=== PATIENT | female | born 1960 | race Caucasian/White ===

== ENCOUNTER 2016-03-19 14:06 | Day surgery (SDC) | payer OTHER ==
[~2016-03-19] VITALS: Ht 162.6 cm; Wt 75.0 kg
[~2016-03-19 14:06] MED LIST: BUPR300T51 PO; Lactated Ringer's 1,000 ML IV ONE; OMEP40CA36 PO; [UNRECOGNIZED DRUG - CODE] PO
[2016-03-19] MEDS ORDERED: Propofol 10,000 mCg/mL 20 mL Inj ONE (14:07)
[2016-03-19] MEDS ORDERED: fentaNYL-PF 50 mCg/mL 2 mL Inj ONE (14:07)
[2016-03-19 14:57] VITALS: BP 125/90; PULSE 80; RESP 16; O2SAT 97
[2016-03-19] MEDS ORDERED: Lactated Ringer's 1,000 ML IV SCH (15:43)
[2016-03-19] MEDS ORDERED: MetoCLOpramide 5 mg/mL 2 mL Inj IVPUSH PRN (15:45)
[2016-03-19] MEDS ORDERED: Ondansetron 2 mg/mL 2 mL Inj IVPUSH PRN (15:45)
[2016-03-19] MEDS ORDERED: Atropine 0.4 mg/mL Inj IVPUSH PRN (15:45)
[2016-03-19 16:32] VITALS: BP 125/93; PULSE 98; RESP 14; O2SAT 93
--- NOTE | 2016-03-19 16:35 | PCM.ANEP2 ---
Post Anesthesia Evaluation ASA/CMS Post Anesthesia VS in Patient's Normal Range?: Yes Resp Stable; Airway Patent?: Yes CV Function & Hydration Stable: Yes Mental Status Recovered?: Yes Pain control Satisfactory?: Yes N/V Control Satisfactory?: Yes Dawson Billings MD Mar 19, 2016 16:35
--- NOTE | 2016-03-19 16:35 | PCM.HPANE ---
Patient Data Surgeon Admitting Provider: Attending Provider:Gio Ren MD Primary Care Physician:Theodore Hills MD Other Provider:[facility] Reason for Visit Weight Loss Ht/WT & BMI Height (Feet): 5 Height (Inches): 4 Weight (Kilograms): 75.0 Body Mass Index 28.00 Allergies Coded Allergies: No Known Drug Allergies (Verified Allergy, Unknown, 01/29/14) Past Anesthesia History Anesthesia History: Positive for:: Abnormal Airway, Difficult Intubation ( states prior anesthesiologist informed her of difficulty ), Denies:: Anesthesia Reactions, Fam Anesthesia Reaction, Fam Malignant Hypertherm, Malignant Hyperthermia Diabetes History Hx Diabetes?: No MRSA MRSA: No Medications Hypertension Medication: No Home Meds Incl Beta Stanley: No Reported Medications Bupropion ER (Wellbutrin XL)300 Mg Tab.er.82c950 Mg PO DAILY #30 TABLET Ref 0 01/26/14 Omeprazole 40 Mg Capsule.dr40 Mg PO BID 30 Days Ref 0 01/26/14 Griseofulvin Ultramicrosize 250 Mg Pxfknw332 Mg PO Q12 01/26/14 History HEENT History: Positive for:: Abnormal Airway Difficult Intubation Denies:: Dysphagia Hearing Problem Hx of Heart Problems?: No Hx of Respiratory Problem?: No Hx Neurologic Problems?: No Neurological History: Denies:: CVA Hx of GI Problems?: Yes Gastrointestinal History: Positive for:: Gastroesphageal Reflux Denies:: Cirrhosis Diverticulitis Hiatal Hernia Rectal Bleeding Female Hx: Denies:: Currently (hysterectomy) Musculoskeletal History: Denies:: Joint Replacement Psycho Social History: Denies:: Anxiety Hx Depression Hx Surgeries?: Yes (hysterectomy, lasix, arm) Hx Any Other Health Problems?: Yes Hx Diabetes: No Hx Alcohol Use: Yes (occ) Smoking Status: Never Smoker Stop/Bang Treated for Sleep Apnea?: No Do You Have a CPAP Machine?: No S-Snoring: Do You Snore Loudly: No T-Tired: feel tired, fatigued: No O-Obsered: Observed not breath: No P-Blood Pressure: treated: No A- Age over 50: Yes N- Neck Large Circumference: No G- Gender Male: No WENDY Risk Assessment: Low Risk, <3 Yes Risk Assessment Category Category 1A: Patient has history of documented sleep apnea, and HAS NOT received any narcotic, sedative or anesthesia administration during this stay. Category 1B: Patient has history of documented sleep apnea, and HAS received any narcotic , sedative or anesthesia administration during this stay Category 2: Patient has SUSPECTED Obstructive Sleep Apnea, and HAS received any narcotic , sedative or anesthesia administration during this stay. Category 3: Patient has SUSPECTED Obstructive Sleep Apnea and HAS NOT received narcotic, sedative or anesthesia administration during this stay. Category 4: Outpatient in Procedural Areas with known sleep apnea or who screen positive for High Risk via the STOP/BANG questionnaire. Exam Exam Vital Signs Vital Signs Date Time Temp Pulse Resp B/P Pulse Ox O2 Delivery O2 Flow Rate FiO2 03/19/16 14:57 80 16 125/90 97 Room Air General Appearance: Alert, Oriented X3, Cooperative, No Acute Distress HEENT/AIRWAY: MP 2 Lungs: Clear to Auscultation, Normal Air Movement Heart: Exam Unremarkable, Regular Rate/Rhythm, No Murmurs/Rubs/Gallops Meds/Labs/Diagnostics Admission Meds Current Medications Lactated Ringer's (Lr) 1,000 ml @ 10 mls/hr Q24H ONCE IV Last administered on 03/19/16 14:50; Start 03/19/16 at 06:00; Stop 03/20/16 at 05:59 Lidocaine HCl (Xylocaine Viscous 2% Soln 15mL) 15 ml ONCE ONCE PO Last administered on 03/19/16 15:01; Start 03/19/16 at 06:00; Stop 03/19/16 at 06:01 ; Status DC Plan Impression Patient chart reviewed, patient interviewed and anesthestic plan with risks, benefits, and alternatives discussed, and informed consent obtained. ASA Physical Status: ASA2 Mod Systemic Disease Anesthetic Plan: GA, MAC Bene/Risks/Altern/Consents: Yes HP Complete Prior to Induction: Yes Dawson Billings MD Mar 19, 2016 15:46
[2016-03-19 16:39] VITALS: BP 131/92; PULSE 87; RESP 14; O2SAT 97
--- NOTE | 2016-03-20 00:45 | ENDO ---
[address] [address] ENDOSCOPY PROCEDURE PATIENT: RICHAR MASON : 1960 MR#: [id number] ADMIT: 03/19/2016 JOB ID: [id number] DATE OF PROCEDURE: 03/19/2016 PRIMARY PROVIDER: Theodore Hills MD. PROCEDURE: Esophagogastroduodenoscopy with biopsies. INDICATIONS: A 55-year-old female with a history of weight loss, early satiety, nausea, bloating, abdominal pain of uncertain etiology. The patient denies that this could be related to obstipation. Repeat upper endoscopy is pursued. EQUIPMENT: 1. GIF-H180J. 2. GIF-160. SEDATION: Monitored anesthesia as provided by Dr. Dawson Billings. COMPLICATIONS: None identified. PROCEDURE INFORMATION: After the risks and benefits were explained, written and verbal informed consent was obtained. The patient was brought into the endoscopy suite and placed into the left lateral decubitus position. Sedation was achieved as above. The GIF-H180J was introduced into the mouth, and once again the patient was intolerant of this endoscope in her posterior oropharynx, very similar to the way she responded at last EGD. We swapped this out for the GIF-160 and applied further sedation. With this, we were able to advance through the upper esophageal sphincter down through the esophagus, stomach and onto the second portion of the duodenum. The scope was slowly withdrawn to carefully examine the mucosa for any defects or lesions. Retroflexed views were accomplished in the stomach. The stomach was decompressed. The scope was removed from the patient who tolerated the procedure well. FINDINGS: 1. Duodenum: Mucosa appeared visually normal from the bulb through to the second portion. Random biopsies were taken for exclusion of sprue considering the patient's reported symptoms. 2. Stomach: No mass lesions. No outlet obstruction. No ulcers. Normal appearing pylorus. Mild diffuse gastropathy was seen throughout. Retroflexed views of the LES disclosed a very subtle sliding hiatal hernia. There was a small gastric polyp in the mid body that was removed and submitted for histopathology/exclusion of H. pylori. 3. Esophagus: The squamocolumnar junction correlated with the top of the gastric folds. The GEJ was at approximately 35 cm from the incisors. No acute or erosive changes. No strictures. No mass lesions throughout. ENDOSCOPIC DIAGNOSES: 1. Subtle sliding hiatal hernia. 2. Gastropathy. 3. Small gastric polyp. RECOMMENDATIONS: 1. Await histopathology. 2. Continue baseline anti-reflux therapy. 3. No findings were made today to account for the patient's clinical symptoms. Should there be nothing histologic to explain her complaints, then I would recommend further imaging with a HIDA scan in the event that this could be related to gallbladder dysfunction (we will order the HIDA scan today).
--- NOTE | 2016-03-21 11:29 | PATH ---
SURGICAL PATHOLOGY Attending Physician:Aye Weston CASE STATUS: Signed Out PATIENT NAME: RICHAR MASON PID: [id number] : 1960 DATE COLLECTED:03/19/2016 00:00 SPECIMEN: 1: Stomach, Polyp, Biopsy 2: Duodenum, Biopsy CLINICAL HISTORY: WEIGHT LOSS 1). GASTRIC POLYP BIOPSY 2). DUODENUM BIOPSY FINAL DIAGNOSIS: 1. Gastric Polyp Biopsy: Benign fundic gland polyp, negative for atypia. 2. Duodenum Biopsy: Changes consistent with chronic duodenitis with areas of foveolar metaplasia. Negative for evidence of celiac disease. Negative for dysplasia and malignancy. ICD10 K31.7 GROSS DESCRIPTION: The specimen is received in two formalin filled containers labeled with the patient's name. 1). The specimen is sublabeled "gastric polyp" and consists of a 0.2 x 0.2 x 0.2 CM portion of tissue which is entirely submitted in cassette 1A. 2). The specimen is sublabeled "duodenum" and consists of 2 portions of tissue which aggregate to 0.4 x 0.3 x 0.2 CM. The specimen is entirely submitted in cassette 2A. 03/20/2016 [facility] ICD-9 CODES: CPT CODES: 1: 10723, 17409 2: 41319 PROCEDURE/ADDENDA: Immunohistochemistry SPI Interpretation {Not Entered} Results-Comments Immunohistochemistry Results: 1.GASTRIC POLYP BIOPSY: NEGATIVE FOR HELICOBACTER PYLORI BY IMMUNOHISTOCHEMISTRY. This test was developed and its performance characteristics determined by [facility]. It has not been cleared or approved by the U. S. Food and Drug Administration. The FDA has determined that such clearance or approval is not necessary. This test is used for clinical purposes. It should not be regarded as investigational or for research. Electronically Signed Out By Gio Rodrigez MD Electronically Signed Out Gio Rodrigez MD [facility] [place] [address] Technical component performed at [facility], [address], [place], [address]
== END 2016-03-19 23:59 | disposition home or self-care (01) ==
LOC: END 14:06
PROVIDERS: ATTEND Internal Medicine Gastroenterology
DX: K29.80 Duodenitis without bleeding (principal); K44.9 Diaphragmatic hernia without obstruction or gangrene; K31.7 Polyp of stomach and duodenum
CPT/HCPCS: 43239; J2405; J3010; J7120

== ENCOUNTER 2016-03-28 12:59 | Day surgery (SDC) | payer OTHER ==
[~2016-03-28] VITALS: Ht 162.6 cm; Wt 64.8 kg
[2016-03-28] VITALS (8 sets, daily range): BP systolic 120–145; BP diastolic 83–97; PULSE 58–80; RESP 13–19; O2SAT 92–97
[~2016-03-28 12:59] MED LIST changes: -Lactated Ringer's 1,000 ML IV ONE
[2016-03-28] MEDS ORDERED: Ondansetron 2 mg/mL 2 mL Inj ONE (13:00)
[2016-03-28] MEDS ORDERED: fentaNYL-PF 50 mCg/mL 2 mL Inj ONE (13:00)
[2016-03-28] MEDS ORDERED: Rocuronium 10 mg/mL 5 mL Inj ONE (13:00)
[2016-03-28] MEDS ORDERED: Neostigmine 1 mg/mL 5 mL Inj ONE (13:00)
[2016-03-28] MEDS ORDERED: Glycopyrrolate 0.2 mg/mL 5 mL Inj ONE (13:00)
[2016-03-28] MEDS ORDERED: Dexamethasone 4 mg/mL Inj ONE (13:00)
[2016-03-28] MEDS ORDERED: Propofol 10,000 mCg/mL 20 mL Inj ONE (13:00)
[2016-03-28] MEDS ORDERED: Lactated Ringer's 1,000 ML IV ONE ×2 (13:17→13:50)
[2016-03-28] MEDS ORDERED: ONDA-53 PO (13:32)
[2016-03-28] MEDS ORDERED: Ondansetron 2 mg/mL 2 mL Inj IVPUSH ONE (14:05)
--- NOTE | 2016-03-28 15:19 | PCM.HPANE ---
Patient Data Surgeon Admitting Provider: Attending Provider:Antonio Salazar MD Primary Care Physician:Theodore Hills MD Other Provider:[facility] [facility] Reason for Visit cholelithiasis Ht/WT & BMI Height (Feet): 5 Height (Inches): 4 Weight (Kilograms): 64.8 Body Mass Index 24.00 Allergies Coded Allergies: No Known Drug Allergies (Verified Allergy, Unknown, 03/28/16) Past Anesthesia History Anesthesia History: Positive for:: Abnormal Airway, Difficult Intubation, Denies:: Anesthesia Reactions, Fam Anesthesia Reaction, Fam Malignant Hypertherm, Malignant Hyperthermia Diabetes History Hx Diabetes?: No MRSA MRSA: No Medications Home Meds Incl Beta Stanley: No Reported Medications Ondansetron 4 Mg Tablet4 Mg PO PRN For Nausea 03/28/16 Bupropion ER (Wellbutrin XL)300 Mg Tab.er.30s129 Mg PO DAILY #30 TABLET Ref 0 01/26/14 Omeprazole 40 Mg Capsule.dr40 Mg PO BID 30 Days Ref 0 01/26/14 Discontinued Reported Medications Griseofulvin Ultramicrosize 250 Mg Jtpuvm364 Mg PO Q12 01/26/14 History HEENT History: Positive for:: Abnormal Airway Difficult Intubation Denies:: Dysphagia Hearing Problem Hx of Heart Problems?: No Hx of Respiratory Problem?: No Hx Neurologic Problems?: No Neurological History: Denies:: CVA Hx of GI Problems?: Yes Gastrointestinal History: Positive for:: Gastroesphageal Reflux Denies:: Cirrhosis Diverticulitis Hiatal Hernia Rectal Bleeding Female Hx: Denies:: Currently (hysterectomy) Musculoskeletal History: Denies:: Joint Replacement Psycho Social History: Denies:: Anxiety Hx Depression Hx Surgeries?: Yes (hysterectomy, lasix, arm) Hx Any Other Health Problems?: Yes Hx Diabetes: No Hx Alcohol Use: Yes (occ) Smoking Status: Never Smoker Stop/Bang Treated for Sleep Apnea?: No Do You Have a CPAP Machine?: No S-Snoring: Do You Snore Loudly: No T-Tired: feel tired, fatigued: No O-Obsered: Observed not breath: No P-Blood Pressure: treated: No B- Body Mass Index > 35 kg/m2: No A- Age over 50: Yes N- Neck Large Circumference: No G- Gender Male: No WENDY Risk Assessment: Low Risk, <3 Yes Risk Assessment Category Category 1A: Patient has history of documented sleep apnea, and HAS NOT received any narcotic, sedative or anesthesia administration during this stay. Category 1B: Patient has history of documented sleep apnea, and HAS received any narcotic , sedative or anesthesia administration during this stay Category 2: Patient has SUSPECTED Obstructive Sleep Apnea, and HAS received any narcotic , sedative or anesthesia administration during this stay. Category 3: Patient has SUSPECTED Obstructive Sleep Apnea and HAS NOT received narcotic, sedative or anesthesia administration during this stay. Category 4: Outpatient in Procedural Areas with known sleep apnea or who screen positive for High Risk via the STOP/BANG questionnaire. Exam Exam Vital Signs Vital Signs Date Time Temp Pulse Resp B/P Pulse Ox O2 Delivery O2 Flow Rate FiO2 03/28/16 13:23 36.7 80 19 120/85 96 Room Air General Appearance: Alert, Oriented X3, Cooperative, No Acute Distress HEENT/AIRWAY: MP 2 Lungs: Clear to Auscultation, Normal Air Movement Heart: Exam Unremarkable, Regular Rate/Rhythm, No Murmurs/Rubs/Gallops Additional Information Short chin and history of difficult intubation. Meds/Labs/Diagnostics Admission Meds Current Medications Lactated Ringer's (Lr) 1,000 ml @ ud STK-MED ONCE IV Last administered on 13:17; Start 03/28/16 at 13:17; Stop 03/28/16 at 13:18; Status DC Ondansetron HCl (Zofran Inj) 4 mg ONCE ONCE IVPUSH Last administered on 14:15; Start 03/28/16 at 14:05; Stop 03/28/16 at 14:06; Status DC Plan Impression Patient chart reviewed, patient interviewed and anesthestic plan with risks, benefits, and alternatives discussed, and informed consent obtained. NPO Status: MIDNIGHT ASA Physical Status: ASA2 Mod Systemic Disease Anesthetic Plan: GA Bene/Risks/Altern/Consents: Yes HP Complete Prior to Induction: Yes Rei Mart MD Mar 28, 2016 15:19
[2016-03-28] MEDS ORDERED: Lactated Ringer's 1,000 ML IV SCH (15:52)
[2016-03-28] MEDS ORDERED: Lactated Ringer's 500 ML IV PRN (15:52)
[2016-03-28] MEDS ORDERED: EPHEDrine Sulfate 50 mg/mL Inj IVPUSH PRN (15:55)
[2016-03-28] MEDS ORDERED: Ondansetron 2 mg/mL 2 mL Inj IVPUSH PRN (15:55)
[2016-03-28] MEDS ORDERED: Atropine 0.4 mg/mL Inj IVPUSH PRN (15:55)
[2016-03-28] MEDS ORDERED: hydrALAZINE 20 mg/mL Inj IVPUSH PRN (15:55)
[2016-03-28] MEDS ORDERED: Labetalol 5 mg/mL 4 mL Inj IV PRN (15:55)
[2016-03-28] MEDS ORDERED: Phenylephrine 10,000 mCg/mL Inj IVPUSH PRN (15:55)
[2016-03-28] MEDS ORDERED: Dexamethasone 4 mg/mL Inj IVPUSH PRN (15:55)
[2016-03-28] MEDS ORDERED: MetoCLOpramide 5 mg/mL 2 mL Inj IVPUSH PRN (15:55)
[2016-03-28] MEDS ORDERED: HYDROmorphone 1 mg/mL Inj IVPUSH PRN (15:55)
[2016-03-28] MEDS ORDERED: Bupivacaine-MPF 0.5% W/EPI 30 mL Inj INFILTRATE ONE (16:08)
[2016-03-28] MEDS ORDERED: oxyCODONE-Acetamin 5-325 mg Tablet PO PRN (16:45)
--- NOTE | 2016-03-28 16:52 | OP ---
[address] [address] OPERATIVE REPORT PATIENT: RICHAR MASON : 1960 MR#: [id number] ADMIT: 03/28/2016 JOB ID: [id number] DATE OF SURGERY: 03/28/2016 ANESTHESIA: General. PREOPERATIVE DIAGNOSIS(ES): 1. Biliary dyskinesia. 2. Chronic cholecystitis. POSTOPERATIVE DIAGNOSIS(ES): Biliary dyskinesia. OPERATION: Laparoscopic cholecystectomy. SURGEON: Antonio Salazar MD ASSISTANTS: Anders Canada PA-C (computer assistant was required for safe and timely completion of the case) and YAN Dean COMPLICATIONS: None. ESTIMATED BLOOD LOSS: Minimal. CONDITION: Satisfactory. SPECIMEN: Gallbladder. FINDINGS: The gallbladder did appear large and somewhat boggy but otherwise unremarkable with no signs of inflammation. INDICATIONS/SIGNIFICANT HISTORY: This patient is a 55-year-old female, who was been experiencing postprandial abdominal pain and nausea for several months. This has become acutely worse over the past couple of months and is to the point where for the past couple of weeks she has been unable to tolerate nothing but a liquid diet. She had a HIDA scan obtained by her primary care physician which showed an ejection fraction of less than 2%. She was seen in my clinic today and had a tender right upper quadrant and therefore we elected to proceed with laparoscopic cholecystectomy. OPERATIVE TECHNIQUE: The patient was taken to the operating room and placed in the supine position. General anesthesia was administered and the abdomen was prepped and draped in standard surgical fashion. A procedural pause was performed. The abdomen was entered through a supraumbilical incision using a 10 mm Optiview trocar. Pneumoperitoneum was achieved without complication. Local anesthetic was injected and 5 mm ports were inserted in the subxiphoid as well as two in the right upper quadrant. The gallbladder was grasped and retracted cephalad. Dissection was begun to identify the cystic duct and cystic artery. The critical view of safety was achieved. A single clip was placed on the cystic artery and three clips on the duct. The artery was transected using electrocautery and the duct sharply. The remainder of the dissection of the gallbladder off the cystic plate was then completed and the gallbladder removed through the umbilical port site. The surgical bed was inspected and found to be hemostatic. There was a little tear in the liver where adhesion to the splenic flexure had torn. Hemostasis was achieved using cautery. The umbilical fascia was then closed using 0 PDS suture with a laparoscopic suture passer. Local anesthetic was injected at the port site. The lateral ports were then removed under direct visualization followed by release of pneumoperitoneum and removal of the remaining port. Skin was closed using 4-0 Monocryl. The entire procedure was well tolerated.
[2016-03-28] MEDS: fentaNYL-PF 50 mCg/mL 2 mL Inj IVPUSH PRN ×2 (17:05→17:10)
--- NOTE | 2016-03-29 11:36 | PCM.ANEP1 ---
Post Anesthesia Phase 1 PACU Phase 1 Assessment Anesthetic Administered: GA GRECO's with Equal Strength: Yes Pain: No Nausea or Vomiting: No Oxygen Delivery: Room Air Lungs: Clear to Auscultation, Normal Air Movement Dermatome Level: Full Sensation Rei Mart MD Mar 29, 2016 11:36
--- NOTE | 2016-03-29 11:37 | PCM.ANEP2 ---
Post Anesthesia Evaluation ASA/CMS Post Anesthesia VS in Patient's Normal Range?: Yes Resp Stable; Airway Patent?: Yes CV Function & Hydration Stable: Yes Mental Status Recovered?: Yes Pain control Satisfactory?: Yes N/V Control Satisfactory?: Yes Rei Mart MD Mar 29, 2016 11:37
--- NOTE | 2016-03-30 11:22 | PATH ---
SURGICAL PATHOLOGY Attending Physician:Antonio Salazar MD CASE STATUS: Signed Out PATIENT NAME: RICHAR MASON PID: [id number] : 1960 DATE COLLECTED:03/28/2016 23:51 SPECIMEN: Gallbladder CLINICAL HISTORY: CHRONIC CHOLECYSTITIS 1). GALLBLADDER FINAL DIAGNOSIS: 1.GALLBLADDER: ACALCULOUS CHRONIC CHOLECYSTITIS. ICD10 CODE K81.1 GROSS DESCRIPTION: Formalin segment "gallbladder" and consists of a slightly opened 8.3 x 3.0 x 2.0 CM gallbladder. The serosa is smooth. The wall is 0.2-0.3 CM in thickness. The mucosa is a dark green in color. The lumen contains a dark green mucoid material and no calculus are noted area of 5 novelties sales representative sections are submitted in one cassette. 03/29/2016 [facility] MICRO DESCRIPTION: See diagnosis. ICD-9 CODES: CPT CODES: 1: 69720 Electronically Signed Out Gio Rodrigez MD [facility] Pathology [facility] [address], [place] [address] Technical component performed at [facility], [facility] [address], [address]
== END 2016-03-28 23:59 | disposition home or self-care (01) ==
LOC: SAS 12:59
PROVIDERS: ATTEND General Practice
DX: K81.1 Chronic cholecystitis (principal); J45.909 Unspecified asthma, uncomplicated; K21.9 Gastro-esophageal reflux disease without esophagitis
CPT/HCPCS: 47562; J1100; J2250; J2405; J2710; J3010; J7120